=== PATIENT | female | born 1975 | race Caucasian/White ===

== ENCOUNTER → 2018-11-26 | Outpatient (CLI) | payer BC ==
[2014-05-22 08:55] VITALS: BMI 27.1
[~2018-11-26] MED LIST: BUPR300T55 PO; CITA-128 PO; CITA-145 PO; CITA-155 PO; CITA-157 PO; CYAN1000 IJ; DOC100 PO; ESCI5TAB10 PO; ESOM40CA42 PO; ESTR42.59 VG; ETON68IM2 SQ; KET10 PO; L-NO1TBD6 PO; LOR5/325 PO; MIRA50TA PO; MONT10TA PO; OSPE60TA2 PO; PER PO; SAL500 PO; SER50 PO; TRAM100T22 PO
== END ==
LOC: LAB 09:44
PROVIDERS: ATTEND Urology
DX: R10.10 Upper abdominal pain, unspecified (principal); R31.9 Hematuria, unspecified
CPT/HCPCS: 81001

== ENCOUNTER → 2018-12-08 | Outpatient (CLI) | payer BC ==
[2014-05-22 08:55] VITALS: BMI 27.1
[~2018-12-08] MED LIST changes: +IOPAMIDOL 76% 100 ML INFUS BTL 100 ML ONE; +IOPAMIDOL 76% 50 ML INFUS BTL 50 ML ONE; +NS(*) 0.9% 50 ML BAG 50 ML ONE; +SOLI10TA8 PO
--- NOTE | 2018-12-08 10:40 | RADIOLOGY IMAGING REPORT ---
FACILITY: [facility] [place] PATIENT NAME: Ashley Mixon : 1975 MR: [id number] V: [id number] EXAM DATE: ORDERING PHYSICIAN: RINA ADAME TECHNOLOGIST: Location: [facility] Patient: Ashley Mixon : 1975 Visit/Account:[id number] Date of Sevice: 12/08/2018 CT ABDOMEN PELVIS W & W/O CONTRAST HISTORY: Hematuria, upper abdomen pain TECHNIQUE: Axial images acquired through the abdomen/pelvis both with and without IV contrast.. Marisela nal and sagittal reformatting also performed.Dose Lowering Technique One of the following dose optimization techniques was utilized in the performance of this exam: Autom ated exposure control; adjustment of the mA and/or kV according to the patient's size; or use of an i terative reconstruction technique. Specific details can be referenced in the facility's radiology C T exam operational policy. CONTRAST: 125 mL Isovue-370 COMPARISON: CT abdomen May 20, 2014 FINDINGS: Visualized lung bases: Negative. Hepatobiliary: Liver is borderline enlarged. Spleen: Spleen is also borderline enlarged at 13.5 cm in length Adrenals: Negative. Pancreas: Negative. Kidneys ureters and bladder: There is a tiny nonobstructing 2 mm calculus in the lower pole the left kidney best appreciated on the coronal images. There is no evidence of hydronephrosis or hydroureter Genitalia: Uterus appears to be absent GI: There is mild diverticulosis of the sigmoid colon. There are postsurgical changes of the stomac h and small bowel. The appendix is visualized and does not appear inflamed Vessels/spaces/nodes: Negative. Bones/soft tissues: There mild spondylotic changes lower lumbar spine . There has been development of a ventral hernia in the midline in the upper abdomen just above the umb ilicus containing omentum. The hernia opening measures 2.1 cm Additional findings: None pertinent. IMPRESSION: There is a tiny nonobstructing 2 mm calculus lower pole the left kidney best appreciated on the coron al images. No evidence of hydronephrosis or hydroureter Borderline hepatosplenomegaly Postsurgical changes of the stomach and small bowel appear stable. Mild diverticulosis of the sigmoid colon There is been development of a ventral hernia in the midline above the level the umbilicus containing omentum. The hernia opening is 2.1 cm. Report Dictated By: Tabatha Watts MD at 12/08/2018 10:18 AM Report E-Signed By: Tabatha Watts MD at 12/08/2018 10:36 AM WSN:[id number]
== END ==
LOC: CT 01:08
PROVIDERS: ATTEND Urology
DX: N20.0 Calculus of kidney (principal); K57.30 Diverticulosis of large intestine without perforation or abscess without bleeding; M47.896 Other spondylosis, lumbar region; K43.6 Other and unspecified ventral hernia with obstruction, without gangrene
CPT/HCPCS: 74178; J7050; Q9967

== ENCOUNTER 2019-01-12 00:09 | Day surgery (SDC) | payer BC ==
[2014-05-22 08:55] VITALS: Ht 167.6 cm; Wt 82.6 kg
[~2019-01-12] VITALS: Ht 167.6 cm; Wt 82.6 kg
[2019-01-12] VITALS (15 sets, daily range): BP systolic 98–114; BP diastolic 57–70
[~2019-01-12 00:09] MED LIST changes: -IOPAMIDOL 76% 100 ML INFUS BTL 100 ML ONE; -IOPAMIDOL 76% 50 ML INFUS BTL 50 ML ONE; -NS(*) 0.9% 50 ML BAG 50 ML ONE
[2019-01-12] MEDS: NORMOSOL R SOLN(*) 1000 ML BAG 1,000 ML IV PRN ×2 (06:14→13:58)
[2019-01-12] MEDS ORDERED: MIDAZOLAM 2 MG/2 ML VIAL IVP PRN (06:30)
[2019-01-12] MEDS ORDERED: FAMOTIDINE 20 MG TAB PO ONE (06:30)
[2019-01-12] MEDS ORDERED: LIDOCAINE/SOD BICARB 8.4% SYR ID ONE (06:30)
[2019-01-12] MEDS ORDERED: BUPIVACAINE 0.5% INJ 50ML VIAL INFIL ONE (06:46)
[2019-01-12] MEDS ORDERED: BUPIVACAINE/EPI 0.5% 50ML VIAL INFIL ONE (06:48)
[2019-01-12 06:49] LABS: PLATELET COUNT, AUTOMATED 137 K/uL (150-450)
[2019-01-12] MEDS ORDERED: METOCLOPRAMIDE 10 MG/2 ML SDV ONE (06:51)
[2019-01-12] MEDS ORDERED: PROPOFOL EMUL(*) 10MG/ML 20 ML 20 ML ONE (06:51)
[2019-01-12] MEDS ORDERED: LIDOCAINE MPF 1% 5 ML VIAL ONE (06:51)
[2019-01-12] MEDS ORDERED: DEXAMETHASONE SOD 4 MG/ML VIAL ONE (06:51)
[2019-01-12] MEDS ORDERED: ONDANSETRON 4 MG/2 ML VIAL ONE (06:51)
[2019-01-12] MEDS ORDERED: fentaNYL CITR 100 MCG/2 ML AMP ONE ×3 (06:53→09:14)
[2019-01-12] MEDS ORDERED: ceFAZolin(*) 2GM/D5W 50ML 50 ML IVPB ONE (07:10)
[2019-01-12] MEDS ORDERED: SUGAMMADEX SOD 200 MG/2 ML SDV ONE (07:42)
[2019-01-12] MEDS ORDERED: HYDR-653 PO (08:52)
--- NOTE | 2019-01-12 08:55 | Short(Outpt) Discharge Summary ---
Discharge Summary Reason for Hosp/Final Diag: (1) Ventral hernia Hospital Course & Plan: pt presented for ventral hernia repair. she tolerated the procedure well and there were no complications. she will be discharged home when criteria met. Departure Discharge to: Home Discharge Instructions Home Meds Active Scripts Hydrocodone Bit/Acetaminophen (NORCO 5-325 TABLET) 1 Each Tablet, 1 EACH PO Q4H PRN for PAIN, #30 TAB Prov:MEGHAN RIDDLE 01/12/19 Mirabegron (MYRBETRIQ) 50 Mg Tab.er.24h, 50 MG PO DAILY for 30 Days, #30 CAP Prov:RINA ADAME MD 11/26/18 Ospemifene (OSPHENA) 60 Mg Tablet, 60 MG PO DAILY, #30 TAB 12 Refills Prov:CHANO PAEZ DO 11/25/18 Citalopram Hydrobromide (CELEXA) 40 Mg Tablet, 40 MG PO QDAY, #30 TAB 12 Refills Prov:CHANO PAEZ DO 11/25/18 Reported Medications Esomeprazole Magnesium (NEXIUM) 40 Mg Capsule.dr, 1 CAP PO QDAY, CAP 10/22/18 Montelukast Sodium (SINGULAIR) 10 Mg Tablet, 1 TAB PO QDAY, TAB 10/22/18 Cyanocobalamin (Vitamin B-12) (CYANOCOBALAMIN INJECTION) 1,000 Mcg/1 Ml Vial, 1000 MCG IJ every month, VIAL 10/22/18 Diet: Regular Activity: No Heavy Lifting Special Instructions: no lifting more than 15 lbs for 6 wks. ok to shower tomorrow. take stool softener while taking pain meds. follow up with dr. monie riddle in 2 weeks ([phone]). MEGHAN RIDDLE Jan 12, 2019 08:55
--- NOTE | 2019-01-12 09:01 | Post Operative Progress Note ---
Post Operative Progress Note Date: Jan 12, 2019 Time: 08:55 Surgeon: dr. shelby riddle #[id number] [place]: none Anesthesia: gen, local dr. carlisle Pre-Op Diagnosis: ventral hernia Post-Op Diagnosis: same Findings: small ventral hernia, (just over 1 cm) Procedure(s): laparoscopic ventral hernia repair with mesh Complications: none Fluids: iv crystalloid Estimated Blood Loss: minimal Date OP Note Dictated: Jan 12, 2019 Time OP Note Dictated: 08:57 MEGHAN RIDDLE Jan 12, 2019 09:01
--- NOTE | 2019-01-12 09:29 | OPERATIVE REPORT 1 ---
EVENT DATE: January 12, 2019 SURGEON: Israel Mcwilliams MD ANESTHESIOLOGIST: Bud Robles MD ANESTHESIA: General and local. [employer]: None. PREOPERATIVE DIAGNOSIS Ventral hernia. POSTOPERATIVE DIAGNOSIS Ventral hernia. PROCEDURE PERFORMED Laparoscopic ventral hernia repair with mesh. IV FLUIDS Crystalloids. ESTIMATED BLOOD LOSS Minimal. SPECIMENS None. COMPLICATIONS None. INDICATIONS This is a 43-year old female with a ventral hernia that is bothersome to her. Risks and benefits of the procedure were explained and consent was signed. DESCRIPTION OF PROCEDURE The patient was taken to the operating room and placed in the supine position. General anesthesia was administered per the anesthesia team. The patient was prepped and draped in normal sterile fashion. Local was used injected into the dermis below the left costal margin. A small incision was made. OptiView technique was used to easily enter the abdomen. Pneumoperitoneum was achieved. After injecting local analgesia and under direct vision, a 12 mm left sided port and a 5 mm left sided port were then placed. I inspected the abdomen and there was no injury upon entry. Hernia contents were reduced. This included preperitoneal fat and the falciform ligament. This was divided with LigaSure and ultimately removed with an EndoCatch bag. I made a small stab incision above the defect. I then used a suture pass device with an 0 Prolene stitch in a [id number] fashion to close the defect. A 9 cm Symbotex mesh was then placed into the abdomen. It was made to lie flat with absorbable tacks. Two more stab incisions were made in order to anchor the mesh with transfascial 2-0 Prolene stitches. Fascia closure device and 0 Vicryl stitch used to close the fascia of the large port site. The most inferior left port site was removed under direct vision. Hemostasis was assured. Pneumoperitoneum was relieved. Final port was removed. All skin incisions were closed with 4-0 Monocryl subcuticular stitches. More local analgesia was injected. Appropriate dressings were applied. The patient tolerated the procedure well. There were no complications. MTDD
[2019-01-12] MEDS ORDERED: APAP/HYDROCODONE 325/5 TAB ONE (10:14)
[2019-01-12] MEDS ORDERED: APAP/HYDROCODONE 325/5 TAB PO PRN ×2 (10:40→10:50)
--- NOTE | 2019-01-12 10:44 | NUR ---
1000: REPORT FROM Noah AVALOS, PT IS SLEEPING, CLEAR IN ALL LUNG KOENIG, SLOW RESPIRATIONS MAINTAINING O2 SATS 1008: PT IS GIVEN CRACKERS AND WARM BLANKET. 1026: PT IS RATING PAIN 05/03, PT IS GIVEN ORAL ANALGESIC, SEE EMAR 1037: PTS KENNEY AT BEDSIDE, PT IS STILL SLEEPING Addendum: 01/12/19 at 1245 by LUKASZ ORONA RN 1130: PT STATES THAT HER PAIN IS FROM GAS, PT IS ASSISTED TO TURN ON SIDE, PT DID NOT LIKE THIS POSITION. PT IS GIVEN PILLOW FOR BEHIND KNEES 1215: PT IS STILL DROWSY 1234: PT IS TAKEN OFF O2, O2 DROPPED, PT IS DROWSY. 1235: PT IS PUT BACK ON 1L O2
--- NOTE | 2019-01-12 14:08 | NUR ---
1300: PT RESTING 1330: PT STATES NEED TO GO TO THE RESTROOM, ORTHOSTATIC BPS STARTED. PT DENIES DIZZINESS OR LIGHT HEADEDNESS 1345: PT IN RR 1353: PT IS BACK IN ROOM, STATES THAT SHE IS DIZZY, PT HOLDING BREATH, PUT BACK ON 1 L NC AND HELPED BACK INTO BED. 1358: NEW BAG OF NR STARTED 1357: PT GIVEN CRACKERS AND DIET COKE TO DRINK.
--- NOTE | 2019-01-12 16:52 | NUR ---
1420: discharge instructions given, pt and state understanding 1448: pt taken to restroom. pt taken off o2, sats fall to 86 1516: home o2 ordered 1540: hernesto at bedside 1545: [facility] called back. set up for two portable tanks to last the 24 hours, one take that was dropped is empty. Oleg at [facility] said for pt to call when they got home 1600: pt dressing with help of 1614: iv dc'ed with cath intact, pressure dressing applied 1620: pt walked to care by hien fu rn and
== END 2019-01-12 10:00 | disposition home or self-care (01) ==
LOC: OR 00:09
PROVIDERS: ATTEND Surgery
DX: K43.9 Ventral hernia without obstruction or gangrene (principal)
CPT/HCPCS: 36415; 49652; 85025; J1100; J2001; J2405; J2704; J2765; J3010; C1781; J0690; J3490